=== PATIENT | female | born 1970 | race Caucasian/White ===

== ENCOUNTER 2024-06-08 04:36 | Observation (INO) | payer BC ==
[2024-06-08] MEDS: SODIUM CHLORIDE 0.9% 1,000 ML IV STA (05:59)
[2024-06-08] MEDS: ONDANSETRON 4 MG/2 ML VIAL IVP STA ×2 (06:01→16:16)
[2024-06-08] MEDS: ACETAMINOPHEN IV (For NPO) 1,000 MG in EMPTY BAG 1 BAG IVPB ONE (06:04)
[2024-06-08 06:30] LABS: ALT 25 U/L (4-34); AST 34 U/L (14-36); African American GFR (CKD) >90 (>60 ml/min/1.73 sqM); Albumin 4.6 g/dL (3.5-5.0); Alkaline Phosphatase 86 U/L (38-126); Anion Gap 11 mmol/L; Blood Urea Nitrogen 20 mg/dL (7-17); Calcium 9.6 mg/dL (8.4-10.2); Carbon Dioxide 20 mmol/L (22-30); Chloride 104 mmol/L (98-107); Glucose 129 mg/dL (74-99); Lipase 41 U/L (23-300); Non-African American GFR(CKD) >90 (>60 ml/min/1.73 sqM); Sodium 135 mmol/L (137-145); Total Bilirubin 0.7 mg/dL (0.2-1.3); Total Protein 7.7 g/dL (6.3-8.2)
[2024-06-08 06:31] LABS: Potassium 5.1 mmol/L (3.5-5.1)
--- NOTE | 2024-06-08 06:39 | ED ---
Abdominal Pain HPI <Cristofer Marin - Last Filed: 06/08/24 09:09> - General Source: family Mode of arrival: ambulatory Limitations: no limitations <Adwoa Rockwell - Last Filed: 06/10/24 16:57> - General Chief Complaint: Abdominal Pain Stated Complaint: ABD Pain Time Seen by Provider: 06/08/24 04:40 - History of Present Illness Initial Comments: 53-year-old female presents emergency department reporting epigastric pain. States that her symptoms started earlier this evening after eating pizza for dinner. She has been doing the house for hours try to get her pain to go away. She is nauseated. Denies vomiting. Radiation of the pain to her back. She denies any fevers. No chest pain or difficulty breathing. No history of abdominal surgeries. She did not take anything for pain before coming in. No history of cardiac disease. No other alleviating, precipitating or modifying factors (Adwoa Rockwell) - Related Data Home Medications Medication Instructions Recorded Confirmed Magnesium Oxide [Magnesium] 500 mg PO DAILY 06/08/24 06/08/24 Multivitamins, Thera [Multivitamin 1 tab PO DAILY 06/08/24 06/08/24 (formulary)] Thyroid,Pork [[place] Thyroid] 60 mg PO DAILY 06/08/24 06/08/24 Previous Rx's Medication Instructions Recorded Acetaminophen Tab [Tylenol] 1,000 mg PO Q6HR PRN #30 tablet 06/09/24 Ibuprofen [Motrin] 600 mg PO Q8HR PRN #30 tab 06/09/24 Allergies Allergy/AdvReac Type Severity Reaction Status Date / Time No Known Allergies Allergy Verified 06/08/24 16:27 Review of Systems ROS Other: All systems not noted in ROS Statement are negative. <Cristofer Marin - Last Filed: 06/08/24 09:09> ROS Other: All systems not noted in ROS Statement are negative. <Adwoa Rockwell - Last Filed: 06/10/24 16:57> ROS Statement: Those systems with pertinent positive or pertinent negative responses have been documented in the HPI. Past Medical History Past Medical History: Thyroid Disorder History of Any Multi-Drug Resistant Organisms: None Reported Past Surgical History: No Surgical Hx Reported Past Psychological History: No Psychological Hx Reported Smoking Status: Former smoker Past Alcohol Use History: None Reported Past Drug Use History: None Reported <Adwoa Rockwell - Last Filed: 06/10/24 16:57> General Exam Limitations: no limitations General appearance: alert, in no apparent distress Head exam: Present: atraumatic, normocephalic, normal inspection Eye exam: Present: normal appearance, PERRL, EOMI. Absent: scleral icterus, conjunctival injection, periorbital swelling ENT exam: Present: normal exam, mucous membranes moist Neck exam: Present: normal inspection. Absent: tenderness, meningismus, lymphadenopathy Respiratory exam: Present: normal lung sounds bilaterally. Absent: respiratory distress, wheezes, rales, rhonchi, stridor Cardiovascular Exam: Present: regular rate, normal rhythm, normal heart sounds. Absent: systolic murmur, diastolic murmur, rubs, gallop, clicks GI/Abdominal exam: Present: soft, tenderness (Right upper quadrant abdominal pain), normal bowel sounds. Absent: distended, guarding, rebound, rigid Extremities exam: Present: normal inspection, full ROM, normal capillary refill. Absent: tenderness, pedal edema, joint swelling, calf tenderness Back exam: Present: normal inspection Neurological exam: Present: alert, oriented X3, CN II-XII intact Psychiatric exam: Present: normal affect, normal mood Skin exam: Present: warm, dry, intact, normal color. Absent: rash <Adwoa Rockwell - Last Filed: 06/10/24 16:57> Course Vital Signs 06/08/24 06/08/24 06/08/24 04:38 05:25 06:41 Temperature 97.8 F 98.0 F Pulse Rate 95 70 56 L Respiratory 18 22 19 Rate Blood Pressure 163/101 143/103 156/97 O2 Sat by Pulse 96 98 98 Oximetry 06/08/24 06/08/24 06/08/24 08:55 09:52 12:05 Temperature 98.0 F 98.6 F Pulse Rate 55 L 52 L 56 L Respiratory 18 18 16 Rate Blood Pressure 165/106 161/88 137/90 O2 Sat by Pulse 99 99 100 Oximetry 06/08/24 14:03 Temperature 98.4 F Pulse Rate 59 L Respiratory 18 Rate Blood Pressure 145/80 O2 Sat by Pulse 100 Oximetry Medical Decision Making - Lab Data Result diagrams: 06/08/24 06:43 06/08/24 04:54 <Cristofer Marin - Last Filed: 06/08/24 09:09> - Lab Data Result diagrams: 06/09/24 06:55 06/09/24 06:55 <Adwoa Rockwell - Last Filed: 06/10/24 16:57> - Medical Decision Making Ultrasound of the gallbladder interpreted by myself does show large gallstone up to 2.5 cm. Mild wall thickening and borderline hydropic change. Patient was reevaluated by myself and having increasing in discomfort and does want further pain medication. This has been provided. Case was discussed with Dr. Herrmann who states the patient wants to stay she would likely be able to do surgery later today. This was discussed with patient as well and she would like to stay. Plan is for admission. Admission orders written. Diagnosis: Cholelithiasis, acute Threat to gastrointestinal dysfunction (Cristofer Marin) Was pt. sent in by a medical professional or institution (, PA, [employer], urgent care, hospital, or assisted...) When possible be specific @ -No Did you speak to anyone other than the patient for history (EMS, parent, family, police, friend...)? What history was obtained from this source @ -Spoke with son for history Did you review nursing and triage notes (agree or disagree)? Why? @ -I reviewed and agree with nursing and triage notes Were old charts reviewed (outside hosp., previous admission, EMS record, old EKG , old radiological studies, urgent care reports/EKG's, assisted records)? Report findings @ -No old charts were reviewed Differential Diagnosis (chest pain, altered mental status, abdominal pain women, abdominal pain men, vaginal bleeding, weakness, fever, dyspnea, syncope, headache, dizziness, GI bleed, back pain, seizure, CVA, palpatations, mental health, musculoskeletal)? @ -Differential Abdominal Pain Women: Appendicitis, Cholecystitis, diverticulosis, ischemic bowel, pancreatitis, h epatitis, UTI, gastroenteritis, AAA, incarcerated hernia, bowel obstruction, constipation, inflammatory bowel, hepatitis, peptic ulcer disease, splenic infarction, perforated viscus, vulvitis, ovarian torsion, PID, kidney stone, placenta abruption, this is not meant to be an all-inclusive list EKG interpreted by me (3pts min.). @ -Yes and demonstrates sinus rhythm with a rate of 74. ME interval 189. QRS 100. QTc of 408. No acute ST segment elevations or depressions X-rays interpreted by me (1pt min.). @ -None done CT interpreted by me (1pt min.). @ -None done U/S interpreted by me (1pt. min.). @ -Pending at this time What testing was considered but not performed or refused? (CT, X-rays, U/S, labs)? Why? @ -None What meds were considered but not given or refused? Why? @ -Pain medication stronger than Tylenol were offered however patient does not want anything else Did you discuss the management of the patient with other professionals (professionals i.e. DrGab, PA, [employer], lab, RT, psych nurse, secondary social studies teacher, first grade teacher, teacher, welfare officer, rehabilitation case coordinator)? Give summary @ -Spoke with Dr. Marin who will take over care of the patient Was smoking cessation discussed for >3mins.? @ -No Was critical care preformed (if so, how long)? @ -No Were there social determinants of health that impacted care today? How? (Homelessness, low income, unemployed, alcoholism, drug addiction, tr ansportation, low edu. Level, literacy, decrease access to med. care, custodial, rehab)? @ -No Was there de-escalation of care discussed even if they declined (Discuss DNR or withdrawal of care, Hospice)? DNR status @ -No What co-morbidities impacted this encounter? (DM, HTN, Smoking, COPD, CAD, Cancer, CVA, ARF, Chemo, Hep., AIDS, mental health diagnosis, sleep apnea, morbid obesity)? @ -None Was patient admitted / discharged? Hospital course, mention meds given and route, prescriptions, significant lab abnormalities, going to OR and other pertinent info. @ -Upon arrival patient seen and evaluated in room 10. Thorough history and physical exam was performed. IV access was established. Laboratory studies were conducted. Patient was given Tylenol and Zofran. Ultrasound is ordered and pending at this time. Case will be signed out to Dr. Marin for disposition (Adwoa Rockwell) - Lab Data Lab Results 06/08/24 06/08/24 06/08/24 Range/Units 04:54 04:54 06:08 WBC (3.8-10.6) k/uL RBC (3.80-5.40) m/uL Hgb (11.4-16.0) gm/dL Hct (34.0-46.0) % MCV (80.0-100.0) fL MCH (25.0-35.0) pg MCHC (31.0-37.0) g/dL RDW (11.5-15.5) % Plt Count (150-450) k/uL MPV Neutrophils % % Lymphocytes % % Monocytes % % Eosinophils % % Basophils % % Neutrophils # (1.3-7.7) k/uL Lymphocytes # (1.0-4.8) k/uL Monocytes # (0-1.0) k/uL Eosinophils # (0-0.7) k/uL Basophils # (0-0.2) k/uL Sodium 135 L (137-145) mmol/L Potassium 5.1 (3.5-5.1) mmol/L Chloride 104 (98-107) mmol/L Carbon Dioxide 20 L (22-30) mmol/L Anion Gap 11 mmol/L BUN 20 H (7-17) mg/dL Creatinine 0.71 (0.52-1.04) mg/dL Est GFR (CKD-EPI)AfAm >90 (>60 ml/min/1.73 sqM) Est GFR (CKD-EPI)NonAf >90 (>60 ml/min/1.73 sqM) Glucose 129 H (74-99) mg/dL Plasma Lactic Acid Harley 2.0 (0.7-2.0) mmol/L Calcium 9.6 (8.4-10.2) mg/dL Total Bilirubin 0.7 (0.2-1.3) mg/dL AST 34 (14-36) U/L ALT 25 (4-34) U/L Alkaline Phosphatase 86 (38-126) U/L Total Protein 7.7 (6.3-8.2) g/dL Albumin 4.6 (3.5-5.0) g/dL Lipase 41 (23-300) U/L Urine Color Colorless Urine Appearance Clear (Clear) Urine pH 6.5 (5.0-8.0) Ur Specific [place] 1.015 (1.001-1.035) Urine Protein Negative (Negative) Urine Glucose (UA) Negative (Negative) Urine Ketones Negative (Negative) Urine Blood Small H (Negative) Urine Nitrite Negative (Negative) Urine Bilirubin Negative (Negative) Urine Urobilinogen <2.0 (<2.0) mg/dL Ur Leukocyte Esterase Negative (Negative) Urine RBC 4 (0-5) /hpf Urine WBC 1 (0-5) /hpf Ur Squamous Epith Cells 1 (0-4) /hpf Urine Bacteria Rare H (None) /hpf Hyaline Casts 1 (0-2) /lpf Urine Mucus Rare H (None) /hpf 06/08/24 Range/Units 06:43 WBC 9.3 (3.8-10.6) k/uL RBC 3.95 (3.80-5.40) m/uL Hgb 12.4 (11.4-16.0) gm/dL Hct 37.6 (34.0-46.0) % MCV 95.1 (80.0-100.0) fL MCH 31.3 (25.0-35.0) pg MCHC 32.9 (31.0-37.0) g/dL RDW 12.7 (11.5-15.5) % Plt Count 259 (150-450) k/uL MPV 7.7 Neutrophils % 79 % Lymphocytes % 15 % Monocytes % 4 % Eosinophils % 1 % Basophils % 0 % Neutrophils # 7.3 (1.3-7.7) k/uL Lymphocytes # 1.4 (1.0-4.8) k/uL Monocytes # 0.4 (0-1.0) k/uL Eosinophils # 0.1 (0-0.7) k/uL Basophils # 0.0 (0-0.2) k/uL Sodium (137-145) mmol/L Potassium (3.5-5.1) mmol/L Chloride (98-107) mmol/L Carbon Dioxide (22-30) mmol/L Anion Gap mmol/L BUN (7-17) mg/dL Creatinine (0.52-1.04) mg/dL Est GFR (CKD-EPI)AfAm (>60 ml/min/1.73 sqM) Est GFR (CKD-EPI)NonAf (>60 ml/min/1.73 sqM) Glucose (74-99) mg/dL Plasma Lactic Acid Harley (0.7-2.0) mmol/L Calcium (8.4-10.2) mg/dL Total Bilirubin (0.2-1.3) mg/dL AST (14-36) U/L ALT (4-34) U/L Alkaline Phosphatase (38-126) U/L Total Protein (6.3-8.2) g/dL Albumin (3.5-5.0) g/dL Lipase (23-300) U/L Urine Color Urine Appearance (Clear) Urine pH (5.0-8.0) Ur Specific [place] (1.001-1.035) Urine Protein (Negative) Urine Glucose (UA) (Negative) Urine Ketones (Negative) Urine Blood (Negative) Urine Nitrite (Negative) Urine Bilirubin (Negative) Urine Urobilinogen (<2.0) mg/dL Ur Leukocyte Esterase (Negative) Urine RBC (0-5) /hpf Urine WBC (0-5) /hpf Ur Squamous Epith Cells (0-4) /hpf Urine Bacteria (None) /hpf Hyaline Casts (0-2) /lpf Urine Mucus (None) /hpf Disposition Is patient prescribed a controlled substance at d/c from ED?: No Time of Disposition: 09:11 <Cristofer Marin - Last Filed: 06/08/24 09:09> <Adwoa Rockwell - Last Filed: 06/10/24 16:57> Clinical Impression: Cholelithiasis Disposition: ADMITTED IP TO THIS HOSP Condition: Stable
[2024-06-08 06:53] LABS: Appearance,Urine Clear (Clear); Bacteria,Urine Rare /hpf; Bilirubin,Urine Negative (Negative); Blood,Urine Small (Negative); Color,Urine Colorless; Glucose,Urine (UA) Negative (Negative); Hyaline Casts,Urine 1 /lpf (0-2); Ketones,Urine Negative (Negative); Leukocyte Esterase,Urine Negative (Negative); Mucus,Urine Rare /hpf; Nitrite,Urine Negative (Negative); PH, Urine 6.5 (5.0-8.0); Protein,Urine Negative (Negative); RBC,Urine 4 /hpf (0-5); Specific Gravity,Urine 1.015 (1.001-1.035); Squamous Epithelial Cell,Urine 1 /hpf (0-4); Urobilinogen,Urine <2.0 mg/dL (<2.0); WBC,Urine 1 /hpf (0-5)
[2024-06-08 07:12] LABS: Basophils % (A) 0 %; Eosinophils # (A) 0.1 k/uL (0-0.7); Eosinophils % (A) 1 %; HCT 37.6 % (34.0-46.0); HGB 12.4 gm/dL (11.4-16.0); Lymphocytes # (A) 1.4 k/uL (1.0-4.8); Lymphocytes % (A) 15 %; MCH 31.3 pg (25.0-35.0); MCHC 32.9 g/dL (31.0-37.0); MCV 95.1 fL (80.0-100.0); Mean Platelet Volume 7.7; Monocytes # (A) 0.4 k/uL (0-1.0); Monocytes % (A) 4 %; Neutrophils # (A) 7.3 k/uL (1.3-7.7); Neutrophils % (A) 79 %; Platelet Count 259 k/uL (150-450); RBC 3.95 m/uL (3.80-5.40); RDW 12.7 % (11.5-15.5); WBC 9.3 k/uL (3.8-10.6)
--- NOTE | 2024-06-08 08:16 | US ---
EXAMINATION TYPE: US gallbladder DATE OF EXAM: 06/08/2024 COMPARISON: NONE CLINICAL INDICATION: Female, 53 years old with history of ruq pain; RUQ pain x 7 hours. TECHNIQUE: Grayscale and color Doppler imaging of the right upper quadrant. FINDINGS: EXAM MEASUREMENTS: Liver Length: 20.0 cm Gallbladder Wall: 0.44 cm CBD: 0.41 cm, color Doppler imaging was utilized to isolate the common bile duct for measurement. Right Kidney: 10.7 x 5.5 x 4.2 cm LICENSED NUCLEAR OPERATOR NOTES: Exam is limited due to gas. Pancreas: Most of the pancreas is visualized showing no gross abnormality. Liver: *Overall homogeneous appearance. Large measurement may be due to the presence of a Toña's lo be. Gallbladder: There is a 2.4 x 2.5 x 1.0 cm gallstone. Mild wall thickening and borderline hydropic. Evidence for sonographic Leonard's sign: Yes CBD: Portions seen appear wnl Right Kidney: Extra renal pelvis. No calyceal dilatation to suggest hydronephrosis. IMPRESSION: 1. A 2.5 cm gallstone. In addition, there is mild gallbladder wall thickening and borderline hydropic change in the setting of positive sonographic Leonard sign. Early acute cholecystitis not excluded. H JARED scan if further imaging assessment is desired. 2. No biliary ductal dilatation. [facility], , 06/08/2024 8:14 AM
[2024-06-08] MEDS: KETOROLAC 15 MG/ML 1 ML VIAL IVP STA ×2 (08:54→16:04)
[2024-06-08] MEDS: FAMOTIDINE 20 MG/2 ML VIAL IV STA (08:55)
[2024-06-08] MEDS ORDERED: HYDROmorphone 0.5 MG/0.5 ML SYRINGE IVP PRN (09:11)
[2024-06-08] MEDS ORDERED: ONDANSETRON 4 MG/2 ML VIAL IVP PRN (09:11)
[2024-06-08] MEDS ORDERED: NALOXONE 0.4 MG/ML 1 ML VIAL IV PRN (09:11)
[2024-06-08] MEDS: SODIUM CHLORIDE 0.9% 1,000 ML IV SCH (09:24)
[2024-06-08] MEDS: PIPERACILLIN-TAZOBACTAM 3.375 GM in SODIUM CHLORIDE 0.9% 100 ML IVPB STA (09:50)
--- NOTE | 2024-06-08 13:20 | P.GSHP ---
History of Present Illness H&P Date: 06/08/24 CHIEF COMPLAINT: Abdominal pain HISTORY OF PRESENT ILLNESS: This is a 53-year-old female who present to the hospital with complaints of right upper quadrant and epigastric abdominal pain that started yesterday. Patient reports eating pizza for dinner. She has had nausea. No vomiting. She reports similar symptoms about a year ago that resolved on their own. She had a gallbladder ultrasound completed that showed a 2.5 cm gallstone with mild gallbladder wall thickening and hydropic gallbladder with a positive Leonard sign. Patient admitted to the hospital with acute cholecystitis. Patient denies any cardiac history or being on any blood thinners. Surgical history includes tubal ligation. PAST MEDICAL HISTORY: See below PAST SURGICAL HISTORY: Tubal ligation MEDICATIONS: See below ALLERGIES: See below SOCIAL HISTORY: No illicit drug use. REVIEW OF SYSTEMS: CONSTITUTIONAL: Denies fever or chills. HEENT: Denies blurred vision, vision changes, or eye pain. Denies hemoptysis CARDIOVASCULAR: Denies chest pain or pressure. RESPIRATORY: No shortness of breath. GASTROINTESTINAL: See HPI for pertinent findings HEMATOLOGIC: Denies bleeding disorders. GENITOURINARY: Denies any blood in urine or increased urinary frequency. SKIN: Denies pruitis. Denies rash. PHYSICAL EXAM: VITAL SIGNS: Reviewed GENERAL: Well-developed in no acute distress. HEENT: No sclera icterus. Extraocular movements grossly intact. Moist buccal mucosa. Head is atraumatic, normocephalic. No nasal drainage. ABDOMEN: Soft. Nondistended. Tender with palpation to the right upper quadrant NEUROLOGIC: Alert and oriented. Cranial nerves II through XII grossly intact. LABORATORY DATA: WBC 9.3 Hgb 12.4 platelets 259 Sodium 135 potassium is 5.1 creatinine 0.71 Lactic acid 2.0 LFTs normal lipase 41 IMAGING: Gallbladder ultrasound reports a 2.5 cm gallstone. There is mild gallbladder wall thickening and borderline hydropic change in the setting of a positive Leonard sign. Early acute cholecystitis not excluded. No biliary ductal dilatation. ASSESSMENT: 1. Acute cholecystitis PLAN: -Patient scheduled for robotic cholecystectomy today with Dr. Herrmann -Keep patient n.p.o. -Continue antibiotics -Continue IV fluids -Continue pain medication as needed Physician [place] note has been reviewed by physician. Signing provider agrees with the documented findings, assessment, and plan of care. Past Medical History Past Medical History: Thyroid Disorder History of Any Multi-Drug Resistant Organisms: None Reported Past Surgical History: No Surgical Hx Reported Past Psychological History: No Psychological Hx Reported Smoking Status: Former smoker Past Alcohol Use History: None Reported Past Drug Use History: None Reported Medications and Allergies Home Medications Medication Instructions Recorded Confirmed Type Magnesium Oxide [Magnesium] 500 mg PO DAILY 06/08/24 06/08/24 History Multivitamins, Thera [Multivitamin 1 tab PO DAILY 06/08/24 06/08/24 History (formulary)] Thyroid,Pork [[place] Thyroid] 60 mg PO DAILY 06/08/24 06/08/24 History Allergies Allergy/AdvReac Type Severity Reaction Status Date / Time No Known Allergies Allergy Verified 06/08/24 10:02 Surgical - Exam Vital Signs Temp Pulse Resp BP Pulse Ox 97.8 F 95 18 163/101 96 06/08/24 04:38 06/08/24 04:38 06/08/24 04:38 06/08/24 04:38 06/08/24 04:38 Results - Labs 06/08/24 06:43 06/08/24 04:54 Abnormal Lab Results - Last 24 Hours (Table) 06/08/24 06/08/24 Range/Units 04:54 06:08 Sodium 135 L (137-145) mmol/L Carbon Dioxide 20 L (22-30) mmol/L BUN 20 H (7-17) mg/dL Glucose 129 H (74-99) mg/dL Urine Blood Small H (Negative) Urine Bacteria Rare H (None) /hpf Urine Mucus Rare H (None) /hpf Diabetes panel 06/08/24 Range/Units 04:54 Sodium 135 L (137-145) mmol/L Potassium 5.1 (3.5-5.1) mmol/L Chloride 104 (98-107) mmol/L Carbon Dioxide 20 L (22-30) mmol/L BUN 20 H (7-17) mg/dL Creatinine 0.71 (0.52-1.04) mg/dL Glucose 129 H (74-99) mg/dL Calcium 9.6 (8.4-10.2) mg/dL AST 34 (14-36) U/L ALT 25 (4-34) U/L Alkaline Phosphatase 86 (38-126) U/L Total Protein 7.7 (6.3-8.2) g/dL Albumin 4.6 (3.5-5.0) g/dL Calcium panel 06/08/24 Range/Units 04:54 Calcium 9.6 (8.4-10.2) mg/dL Albumin 4.6 (3.5-5.0) g/dL Pituitary panel 06/08/24 Range/Units 04:54 Sodium 135 L (137-145) mmol/L Potassium 5.1 (3.5-5.1) mmol/L Chloride 104 (98-107) mmol/L Carbon Dioxide 20 L (22-30) mmol/L BUN 20 H (7-17) mg/dL Creatinine 0.71 (0.52-1.04) mg/dL Glucose 129 H (74-99) mg/dL Calcium 9.6 (8.4-10.2) mg/dL Adrenal panel 06/08/24 Range/Units 04:54 Sodium 135 L (137-145) mmol/L Potassium 5.1 (3.5-5.1) mmol/L Chloride 104 (98-107) mmol/L Carbon Dioxide 20 L (22-30) mmol/L BUN 20 H (7-17) mg/dL Creatinine 0.71 (0.52-1.04) mg/dL Glucose 129 H (74-99) mg/dL Calcium 9.6 (8.4-10.2) mg/dL Total Bilirubin 0.7 (0.2-1.3) mg/dL AST 34 (14-36) U/L ALT 25 (4-34) U/L Alkaline Phosphatase 86 (38-126) U/L Total Protein 7.7 (6.3-8.2) g/dL Albumin 4.6 (3.5-5.0) g/dL
[2024-06-08] MEDS: IV FLUID CONTINUATION 1,000 ML IV ONE (15:30)
[2024-06-08] MEDS: MIDAZOLAM 2 MG/2 ML VIAL IV ONE (15:59)
[2024-06-08] MEDS: DEXAMETHASONE SOD PHOSPHATE 4 MG/ML 1 ML VIAL IVP STA (16:01)
[2024-06-08] MEDS: PIPERACILLIN-TAZOBACTAM 3.375 GM in SODIUM CHLORIDE 0.9% 100 ML IVPB SCH (16:07)
[2024-06-08] MEDS: SCOPOLAMINE 1 MG/72 HR PATCH TRANSDERM STA (16:15)
[2024-06-08] MEDS ORDERED: NEOSTIGMINE 1 MG/ML 10 ML VIAL ONE (16:50)
[2024-06-08] MEDS ORDERED: INDOCYANINE GREEN 25 MG VIAL IV ONE (16:50)
[2024-06-08] MEDS ORDERED: PHENYLEPHRINE-0.9% NACL SYG 1,000 MCG/10 ML SYRINGE ONE (16:50)
[2024-06-08] MEDS ORDERED: fentaNYL (PF) 50 MCG/ML 2 ML AMP ONE (16:50)
[2024-06-08] MEDS ORDERED: SUCCINYLCHOLINE CHLORIDE 200 MG/10 ML VIAL IV ONE (16:50)
[2024-06-08] MEDS ORDERED: KETAMINE HCL IN 0.9 % NACL 50 MG/5 ML SYRINGE ONE (16:50)
[2024-06-08] MEDS ORDERED: HYDROmorphone (PF) 1 MG/ML ONE (16:50)
[2024-06-08] MEDS ORDERED: ROCURONIUM 10 MG/ML (5 ML VIAL) IV ONE (16:50)
[2024-06-08] MEDS ORDERED: LIDOCAINE 1% INJ 10MG/ML (20 ML MDV) ONE (16:50)
[2024-06-08] MEDS ORDERED: GLYCOPYRROLATE 0.2 MG/ML 2 ML VIAL ONE (16:50)
[2024-06-08] MEDS ORDERED: MIDAZOLAM 2 MG/2 ML VIAL ONE (16:50)
[2024-06-08] MEDS ORDERED: PROPOFOL 10 MG/ML 20 ML VIAL IV ONE (16:50)
[2024-06-08] MEDS: LIDOCAINE 1%-EPI 1:100,000 20 ML VIAL SQ ONE (17:23)
[2024-06-08] MEDS: LACTATED RINGERS 1,000 ML IV ONE ×2 (17:26→19:30)
[2024-06-08] MEDS: HYDROmorphone 1 MG/ML 1 ML SYRINGE IVP PRN (20:32)
[2024-06-08 21:11] VITALS: RESP 16
[2024-06-08] MEDS: KETOROLAC 15 MG/ML 1 ML VIAL IVP SCH (23:55)
[2024-06-08] MEDS: ACETAMINOPHEN IV (For NPO) 1,000 MG in EMPTY BAG 1 BAG IVPB SCH (23:57)
[2024-06-09] MEDS: ONDANSETRON 4 MG/2 ML VIAL IVP SCH
[2024-06-09] MEDS: SIMETHICONE 40 MG/0.6 ML DROPS 2,000 MG/30 ML BOTTLE PO SCH (00:15)
[2024-06-09] MEDS: METOCLOPRAMIDE 5 MG/ML 2 ML VIAL IVP PRN (05:40)
[2024-06-09 06:19] VITALS: BP 126/72; PULSE 68; TEMP 97.8
[2024-06-09 07:13] LABS: Basophils % (A) 0 %; Eosinophils # (A) 0.2 k/uL (0-0.7); Eosinophils % (A) 2 %; HCT 38.7 % (34.0-46.0); HGB 12.6 gm/dL (11.4-16.0); Lymphocytes # (A) 1.4 k/uL (1.0-4.8); Lymphocytes % (A) 13 %; MCH 31.1 pg (25.0-35.0); MCHC 32.5 g/dL (31.0-37.0); MCV 95.7 fL (80.0-100.0); Monocytes # (A) 0.5 k/uL (0-1.0); Monocytes % (A) 4 %; Neutrophils # (A) 8.5 k/uL (1.3-7.7); Neutrophils % (A) 80 %; Platelet Count 268 k/uL (150-450); RBC 4.04 m/uL (3.80-5.40); RDW 12.9 % (11.5-15.5); WBC 10.5 k/uL (3.8-10.6)
[2024-06-09 07:38] LABS: ALT 31 U/L (4-34); AST 30 U/L (14-36); African American GFR (CKD) >90 (>60 ml/min/1.73 sqM); Albumin 3.5 g/dL (3.5-5.0); Alkaline Phosphatase 70 U/L (38-126); Amylase 48 U/L (30-110); Anion Gap 4 mmol/L; Blood Urea Nitrogen 11 mg/dL (7-17); Calcium 8.5 mg/dL (8.4-10.2); Carbon Dioxide 23 mmol/L (22-30); Chloride 105 mmol/L (98-107); Glucose 119 mg/dL (74-99); Lipase 17 U/L (23-300); Non-African American GFR(CKD) 82 (>60 ml/min/1.73 sqM); Potassium 4.1 mmol/L (3.5-5.1); Sodium 132 mmol/L (137-145); Total Bilirubin 0.6 mg/dL (0.2-1.3); Total Protein 5.9 g/dL (6.3-8.2)
[2024-06-09] MEDS: PANTOPRAZOLE 40 MG/10 ML VIAL IV SCH (09:31)
--- NOTE | 2024-06-09 13:07 | P.DS ---
Providers Date of admission: 06/08/24 09:11 Expected date of discharge: 06/09/24 Attending physician: Kaitlynn Herrmann Primary care physician: Lona Wade DO Hospital Course: Discharge diagnosis 1. Acute cholecystitis Hospital course This is a 53-year-old female who presented with right upper quadrant abdominal pain. The gallbladder ultrasound completed that showed a 2.5 cm gallstone with mild gallbladder wall thickening and hydropic gallbladder with a positive Leonard sign. Patient admitted to the hospital with acute cholecystitis. Patient is status post robotic cholecystectomy. Patient tolerated surgery well. Her pain is controlled. She is tolerating diet. Her pain is controlled. She is afebrile. She denies any difficulty urinating. She is having flatus. She has been up and ambulating. She is stable for discharge. Physician [employer] note has been reviewed by physician. Signing provider agrees with the documented findings, assessment, and plan of care. Patient Condition at Discharge: Stable Plan - Discharge Summary New Discharge Prescriptions: New Ibuprofen [Motrin] 600 mg PO Q8HR PRN #30 tab PRN Reason: Pain Acetaminophen Tab [Tylenol] 1,000 mg PO Q6HR PRN #30 tablet PRN Reason: Pain Continue Multivitamins, Thera [Multivitamin (formulary)] 1 tab PO DAILY Thyroid,Pork [Roby Thyroid] 60 mg PO DAILY Magnesium Oxide [Magnesium] 500 mg PO DAILY Discharge Medication List Magnesium Oxide [Magnesium] 500 mg PO DAILY 06/08/24 [History] Multivitamins, Thera [Multivitamin (formulary)] 1 tab PO DAILY 06/08/24 [History] Thyroid,Pork [Roby Thyroid] 60 mg PO DAILY 06/08/24 [History] Acetaminophen Tab [Tylenol] 1,000 mg PO Q6HR PRN #30 tablet 06/09/24 [Rx] Ibuprofen [Motrin] 600 mg PO Q8HR PRN #30 tab 06/09/24 [Rx] Follow up Appointment(s)/Referral(s): Lona Wade DO [Primary Care Provider] - 1-2 days Kaitlynn Herrmann MD [STAFF PHYSICIAN] - 06/13/24 Patient Instructions/Handouts: *Surgery [facility] - Scopalamine Patch Instructions Activity/Diet/Wound Care/Special Instructions: No lifting over 4 pounds in 4 weeks You May shower. No bath tub soaks for two weeks Use Tylenol and ibuprofen scheduled for the next 24-48 hours for best pain relief. Use ice along incisions for the today to prevent swelling. Telehealth visit with Dr. Herrmann on 06/13/2024 Discharge Disposition: HOME SELF-CARE
--- NOTE | 2024-06-09 16:40 | P.OP ---
Date of Procedure: 06/08/24 Description of Procedure: SURGEON: CATHIE LOPEZ MD PREOPERATIVE DIAGNOSES: 1. Acute cholecystitis due to cystic duct obstruction from gallstones 2. Morbid obesity due to excess calories, BMI 38.7 3. Hypothyroidism POSTOPERATIVE DIAGNOSES: 1. Acute on chronic cholecystitis due to cystic duct obstruction from gallstones 2. Morbid obesity due to excess calories, BMI 38.7 3. Hypothyroidism 4. Peritoneal adhesions, right upper quadrant 5. Acute hydrops cholecystitis 6. Mild hepatomegaly OPERATION: 1. Robotic-assisted da Nathan Xi laparoscopic lysis of adhesions over 50% of the case 2. Robotic-assisted da Nathan Xi laparoscopic cholecystectomy, multiport with FIREFLY ESTIMATED BLOOD LOSS: 5 mL. SPECIMENS REMOVED: Gallbladder. COMPLICATIONS: None. OPERATIVE FINDINGS: 1. Moderate scarring over entire gallbladder with peritoneal adhesions, pericholecystic with features of chronic cholecystitis 2. Acute thickened gallbladder wall with edema consistent with acute cholecystitis INDICATIONS: The patient is a 53-year-old female who presents with acute cholecystitis due to symptomatic gallstones. Robotic assisted laparoscopic approach was described. Benefits and risks of the procedure including but not limited to bleeding, infection, injury to the biliary tree was described. Informed consent was obtained. DESCRIPTION OF PROCEDURE: Patient was brought to the operating room, placed in supine position. After general induction, the abdomen had been prepped and draped in standard sterile fashion. The robotic da Nathan XI system was primed. After a timeout protocol was performed, the patient had been prepped and draped in standard sterile fashion. The patient was injected with indocyanine green. A 5 mm 0 degrees laparoscopic trocar entry was performed along the left upper quadrant. The abdomen insufflated to 15 mmHg pressure which was tolerated well. Diagnostic laparoscopy demonstrated no injury to bowel viscera or mesentery. The liver surface was remarkable for mild hepatomegaly. Next, two 8 mm robotic ports were placed along the right upper abdomen. The camera 8-mm port was maintained along the epigastrium. Another 8 mm port was placed along the left upper abdominal wall after exchanging the 5 mm port. Please note that the ports were placed at least 10 to 15 cm away from the target anatomy of the gallbladder. The robot was docked along the left lateral abdomen. The patient was repositioned in reverse Trendelenburg position. Using a grasper for arm 3, a grasper for arm 4, including hook cautery for arm 1, the robotic system was docked and primed as described. Instruments were interchanged by the assistant controller including hook cautery, Bovie cautery and clip appliers. I had sat at the console. The gallbladder was scarred with peritoneal adhesions. The gallbladder wall was thickened and edematous consistent with acute cholecystitis. The gallbladder was moderately distended consistent with hydrops. Dome down technique from the gallbladder fundus toward the infundibulum was performed to release the adhesions including attachments from hepatic fossa. Lysis of adhesions was performed to free the gallbladder from the surrounding tissues over 50% of the case. Next attention was brought to the infundibulum and cystic structures. The cystic duct was distorted due to severe adhesions. The infundibulum and cystic duct were dissected free from surrounding tissues. The cystic duct was isolated. FIREFLY was used to identify the cystic artery and cystic structures. A critical view of safety was obtained. Large PLASTIC clips were used throughout the entire case. Using a clip nursing executive, 3 clips were placed at the junction of the infundibulum and cystic duct. Color of bile was clear consistent with hydrops. The cystic duct was divided between clips. Next, the cystic artery was similarly clipped and cauterized. Electro-Bovie cautery was used to remove the gallbladder from the hepatic fossa. Hemostasis was checked and found to be adequate. The robot was undocked. I re-scrubbed into the case. Using a 10 mm Endo Catch bag via the left upper quadrant incision after widening the incision, the specimen was removed from the abdominal cavity. All pneumoperitoneum instruments were evacuated from the abdominal cavity. The incisions were reapproximated using 4-0 Monocryl in an interrupted subcuticular fashion. Fascial defects were less than 8 mm in size. Please note along the trocar sites, local anesthetic was placed as a field block prior to insertion of all instruments. Liquid glue was applied to the skin. At the end of the procedure needle, sponge, and instrument count had been verified correct by the surgical consultant. The patient was transferred to postanesthesia care unit in stable condition. Intraoperative films were shared with the patient's family.
== END 2024-06-09 13:36 | disposition home or self-care (01) ==
LOC: EC 04:36 → 5NMEDONC 09:11 → 4FBP 13:42
PROVIDERS: ADMIT Surgery Plastic and Reconstructive Surgery; ATTEND Surgery Plastic and Reconstructive Surgery
DX: K80.13 Calculus of gallbladder with acute and chronic cholecystitis with obstruction (principal); K82.1 Hydrops of gallbladder; K66.0 Peritoneal adhesions (postprocedural) (postinfection); E66.01 Morbid (severe) obesity due to excess calories; Z68.38 Body mass index [BMI] 38.0-38.9, adult; R16.0 Hepatomegaly, not elsewhere classified; Z79.890 Hormone replacement therapy; E03.9 Hypothyroidism, unspecified; Z79.899 Other long term (current) drug therapy; Z87.891 Personal history of nicotine dependence; Z98.51 Tubal ligation status
CPT/HCPCS: 47562; S2900; 36415; 76705; 80053; 81001; 81025; 82150; 83605; 83690; 85025; 88304; 96365; 96375; 99285